=== PATIENT | female | born 1995 | race Two or more races ===

== ENCOUNTER → 2016-11-19 09:04 | Outpatient (CLI) | payer MEDICAID ==
[~2016-11-19 09:04] MED LIST: GLYBURIDE2.5 MG PO; PRENATAL COMPLE1 TAB PO
--- NOTE | 2016-11-19 10:22 | NUR ---
Nutrition education for THAI: Pt reports eating three meals every day about the same time every day. Pt is a vegetarian. Pt does not drink soda, juice or any sugary drinks. Pt drinks about 2 cups of coffee a day. Pt drinks soy or almond milk. Pt is trying to walk every day. Pt eats some junk food but tries to be careful with sir much. Reviewed CHO containing foods and the affect CHO have on glucose. Reviewed portion sizes of common CHO foods. Stressed the importance of consistent meals times along with portion control to keep glucose under control. Pt appears to be eating too many CHO at meals which is causing glucose to spike. Advised pt to eat a high protein source with all CHO eaten, ie, nuts with cereal; peanut butter with fruit; soy milk with a meal. Pt with good understanding of diet information provided. Reviewed glucose numbers before meals and after meals. Instructed pt on the use of a glucometer and lancet device. FSBS: 116 mg/dl post-prandial. Pt with good understanding of how to use a glucometer. Provided pt with printed diet information and RDN name and phone number. RDN will be available if needed. Thank you for the consult.
[2017-01-27 12:16] VITALS: BMI 37.9
== END | disposition home or self-care (01) ==
LOC: D.FANS 09:00
DX: O24.419 Gestational diabetes mellitus in pregnancy, unspecified control (principal)

== ENCOUNTER → 2016-12-20 10:30 | Outpatient (CLI) | payer MEDICAID ==
[2017-01-27 12:16] VITALS: BMI 37.9
== END | disposition home or self-care (01) ==
LOC: D.LDO 10:30
DX: O24.419 Gestational diabetes mellitus in pregnancy, unspecified control (principal); Z3A.34 34 weeks gestation of pregnancy

== ENCOUNTER → 2016-12-24 10:45 | Outpatient (CLI) | payer MEDICAID ==
[2017-01-27 12:16] VITALS: BMI 37.9
== END | disposition home or self-care (01) ==
LOC: D.LDO 10:45
DX: O24.419 Gestational diabetes mellitus in pregnancy, unspecified control (principal); Z3A.34 34 weeks gestation of pregnancy

== ENCOUNTER → 2016-12-31 18:16 | Outpatient (CLI) | payer SELFPAY | END | disposition home or self-care (01) | LOC: D.LDO 18:16 | DX: O24.419 Gestational diabetes mellitus in pregnancy, unspecified control (principal); Z3A.35 35 weeks gestation of pregnancy ==

== ENCOUNTER → 2017-01-07 17:29 | Outpatient (CLI) | payer SELFPAY | END | disposition home or self-care (01) | LOC: D.LDO 17:29 | DX: O24.419 Gestational diabetes mellitus in pregnancy, unspecified control (principal); Z3A.36 36 weeks gestation of pregnancy ==

== ENCOUNTER → 2017-01-10 14:06 | Outpatient (CLI) | payer SELFPAY | END | disposition home or self-care (01) | LOC: D.LDO 14:06 | DX: O24.419 Gestational diabetes mellitus in pregnancy, unspecified control (principal) ==

== ENCOUNTER → 2017-01-15 11:17 | Outpatient (CLI) | payer SELFPAY | END | disposition home or self-care (01) | LOC: D.LDO 11:17 | DX: Z34.83 Encounter for supervision of other normal pregnancy, third trimester (principal); Z3A.38 38 weeks gestation of pregnancy ==

== ENCOUNTER 2017-01-27 10:04 | Inpatient (IN) | payer SELFPAY ==
[~2017-01-27] VITALS: Ht 157.5 cm; Wt 94.1 kg
[2017-01-27] MEDS ORDERED: GLYBURIDE2.5 MG PO (12:04)
[2017-01-27] MEDS ORDERED: PRENATAL COMPLE1 TAB PO (12:05)
[2017-01-27 12:16] VITALS: BP 129/81; Ht 157.5 cm; Wt 94.1 kg
[2017-01-27 12:49] LABS: HEMATOCRIT 33.6 % (36.0-48.0); HEMOGLOBIN 10.7 g/dL (12-16); MCH 26.4 pg (26.0-34.0); MCHC 31.8 g/dL (31.0-37.0); MEAN PLATELET VOLUME 10.3 fL (7.4-10.4); RBC 4.05 10x6/uL (4.00-5.40); WBC 8.7 10x3/uL (4.8-10.8)
[2017-01-27 13:03] LABS: APPEARANCE HAZY (CLEAR); BACTERIA MODERATE /hpf (NONE SEEN); BILIRUBIN NEGATIVE (NEGATIVE); COLOR YELLOW (YELLOW); EPITHELIAL CELLS 0-5 /hpf (0-5); GLUCOSE NEGATIVE (NEGATIVE); KETONE NEGATIVE (NEGATIVE); LEUKOCYTE ESTERASE 2+ (NEGATIVE); NITRITE NEGATIVE (NEGATIVE); PROTEIN NEGATIVE (NEGATIVE); SPECIFIC GRAVITY 1.005 (1.005-1.020); UROBILINOGEN NORMAL (NORMAL)
--- NOTE | 2017-01-27 21:42 | NUR ---
THIS G2 NOW P2 VIA NVD AT 1950 TRANSFERRED VIA W/C TO ROOM 1273 FOR CONTINUED PP CARE BY THIS RN. ORIENTED TO NEW ROOM AND CL USE, VERBALIZED UNDERSTANDING. NEW ICE PACK APPLIED TO PERINUM. PT STATES THAT S/O WENT HOME TO CARE FOR PETS AND WILL RETURN TO UNIT SHORTLY. LINENS PROVIDED FOR S/O AND COUCH TURNED INTO BED. ICE WATER AND ORANGE JUICE GIVEN PER PT REQUEST. PT DENIES PAIN AT THIS TIME, 010. INSTRUCTED TO NOTIFY RN OF NEED FOR PAIN INTERVENTION AND ORDERED MEDS DISCUSSED WITH PT AND THAT THEY WERE ORDERED PRN MEANING SHE HAD TO ASK FOR THEM, VERBALIZED UNDERSTANDING. INSTRUCTED ON USE OF PHONE TO CONTACT NBN, EXT TO NBN PLACED ON WHITE BOARD IN ROOM, VERBALIZED UNDERSTANDING. PLAN OF CARE REVIEWED WITH PT, DENIES QUESTIONS. BED IN LOW POSITION WITH UPPER SIDE RAILS RAISED X2. CL AND PHONE WITHIN PT REACH. WILL CONT TO MONITOR AND ASSIST PRN.
--- NOTE | 2017-01-27 21:45 | NUR ---
NBN RN NOTIFIED THAT PT MOVED TO ROOM 1273 FOR CONTINUED PP CARE.
[2017-01-27 21:56] VITALS: BP 151/86
[2017-01-27 22:16] VITALS: BP 142/92
--- NOTE | 2017-01-27 22:34 | NUR ---
ROUNDS MADE. PT RESTING WITH EYES CLOSED, OPENED EYES WHEN RN OPENED DOOR. LAST B/P READING 142/92. PT DENIES HEADACHE, BLURRED VISION, DIZZINESS, LIGHTHEADED, OR NAUSEA. DENIES PAIN, STATES THAT SHE IS TIRED AND WANTS TO CONT TO REST. DENIES NEEDS, WILL CONT TO MONITOR AND ASSIST PRN. BED IN LOW POSITION WITH UPPER SIDE RAILS RAISED X2. CL AND PHONE WITHIN REACH. ICE WATER GIVEN.
[2017-01-27 22:36] VITALS: BP 139/88
[2017-01-27 22:56] VITALS: BP 142/86
[2017-01-27 23:14] VITALS: BP 142/88
--- NOTE | 2017-01-27 23:14 | NUR ---
INFANT TO ROOM BY NBN RN FOR AND BONDING. B/P CURRENTLY 142/88. B/P CUFF REMOVED PER PT REQUEST FOR BONDING WITH AND . NBN RN AT BEDSIDE ASSISTING PT WITH AT THIS TIME. WILL CONT TO MONITOR AND ASSIST PRN.
--- NOTE | 2017-01-28 00:02 | NUR ---
ROUNDS MADE. PT CONTINUES TO CARTER WITH INFANT SKIN TO SKIN AT THIS TIME. DENIES NEEDS. WILL CONT TO MONITOR AND ASSIST PRN.
--- NOTE | 2017-01-28 00:07 | NUR ---
S/O RETURNS TO UNIT. DIRECTED TO ROOM.
[2017-01-28 01:10] VITALS: BP 144/89
--- NOTE | 2017-01-28 01:23 | NUR ---
ROUNDS MADE. PT RESTING WITH EYES CLOSED, INFANT IN NBN AT THIS. RESPIRATIONS REGULAR, NO S/S OF DISTRESS NOTED. BED IN LOW POSITION WITH UPPER SIDE RAILS RAISED X2. CL AND PHONE WITHIN REACH. S/O SLEEPING ON COUCH AT BEDSIDE. WILL CONT TO MONITOR AND ASSIST PRN.
--- NOTE | 2017-01-28 03:02 | NUR ---
ROUNDS MADE. PT HOLDING INFANT AT THIS TIME. ICE WATER GIVEN PER REQUEST. DENIES PAIN. S/O SLEEPING AT BEDSIDE. BED IN LOW POSITION WITH UPPER SIDE RAILS RAISED X2. CL AND PHONE WITHIN REACH. WILL CONT TO MONITOR AND ASSIST PRN.
--- NOTE | 2017-01-28 06:06 | NUR ---
ROUNDS MADE. PT RESTING WITH EYES CLOSED. RESPIRATIONS REGULAR, NO S/S OF DISTRESS NOTED. S/O AT BEDSIDE SLEEPING. BED IN LOW POSITION WITH UPPER SIDE RAILS RAISED X2. CL AND PHONE WITHIN REACH.
[2017-01-28 06:14] LABS: RAPID PLASMA REAGIN Non Reactive (Non Reactive)
[2017-01-28 06:20] LABS: HEMATOCRIT 30.8 % (36.0-48.0); HEMOGLOBIN 9.9 g/dL (12-16); MCH 26.7 pg (26.0-34.0); MCHC 32.1 g/dL (31.0-37.0); MEAN PLATELET VOLUME 10.3 fL (7.4-10.4); RBC 3.71 10x6/uL (4.00-5.40); RDW 15.1 % (11.5-14.5)
[2017-01-28 06:27] LABS: WBC 14.3 10x3/uL (4.8-10.8)
--- NOTE | 2017-01-28 07:09 | OP ---
PATIENT NAME: THANG RUBIO MEDICAL RECORD: [id number] :95 LOCATION:[id number] ADMISSION DATE:01/27/17 SURGEON: TANVI CRISOSTOMO MD DATE OF OPERATION: 01/27/2017 Delivery Note Spontaneous vaginal delivery of male infant weighing 7 pounds 8 ounces, 9 and 10 Apgars, epidural anesthesia. No episiotomy, no laceration. Spontaneous delivery of intact-appearing placenta, pH drawn and pending. ESTIMATED BLOOD LOSS: 400 cc. COMPLICATIONS: None. TRANSINT:[id number] Voice Confirmation ID: [id number] DOCUMENT ID: [id number] TANVI CRISOSTOMO MD at 0709 CC: [id number] DICTATION DATE: 01/27/172001 PROCESS CAMERA OPERATOR: 01/28/17 0116 ADM IN [facility] [address] [place] [address]
--- NOTE | 2017-01-28 08:19 | NUR ---
PATIENT TRANSFERRED TO ROOM 1257. SHE IS ABLE TO AMBULATE INDEPENDENTLY. SHE IS PLEASED WITH HER ROOM. VSS. FOB AND MOVED WITH HER. SHE REQUESTS IBUPROPHEN FOR HER PAIN. STATES THAT SHE WOULD LIKE TO DO WITHOUT THE NARCOTICS IF POSSIBLE. HER PAIN IS MAINLY CRAMPING, FELT WHILE . SHE STATES THAT HER BLEEDING IS LIKE THAT OF A PERIOD, NO CLOTS NOTED. FF AND MIDLINE. ORIENTED TO ROOM, CALL LIGHT IS WITHIN HER REACH, ENCOURAGED TO CALL WITH ANY NEEDS.
[2017-01-28 08:26] VITALS: BP 142/84
--- NOTE | 2017-01-28 09:20 | NUR ---
PATIENT RESTING QUIETLY WITH EYES CLOSED. WOKE HER TO TAKE TO THE NURSERY. SHE DENIED NEEDS.
--- NOTE | 2017-01-28 10:30 | NUR ---
PATIENT SITTING UP IN HER BED VISITING WITH FAMILY. DENIES NEEDS. CALL LIGHT WITHIN HER REACH.
--- NOTE | 2017-01-28 12:18 | NUR ---
PATIENT UP AD SHIRA AROUNG HER ROOM. DENIES NEEDS AT THIS TIME.
[2017-01-28 12:22] VITALS: BP 148/97
--- NOTE | 2017-01-28 13:25 | NUR ---
LOPRESSOR GIVEN. WAS JUST DELIVERED FROM PHARMACY. PATIENT UNDERSTOOD WHAT IT IS AND THE POSSIBLE SIDE EFFECTS. FRESH WATER GIVEN. DENIED OTHER NEEDS.
--- NOTE | 2017-01-28 16:30 | NUR ---
baby in arms of pt. no complaints voiced.
--- NOTE | 2017-01-28 18:18 | NUR ---
numerous visitors with pt. no problems noted.
[2017-01-28 19:35] VITALS: BP 160/85
--- NOTE | 2017-01-28 19:35 | NUR ---
AWAKE DURING INITIAL ROUNDS. INTRODUCED SELF. V/S TAKEN. ASSESSMENT DONE. STATUS POST YESTERDAY. NO EPISIOTOMY OR LACERATIONS. . VOIDING WELL, LOCHIA RUBRA LIGHT. SALINE LOCK TO R FA REMOVED PER PT's REQUEST. CATH TIP INTACT.
[2017-01-28 21:10] VITALS: BP 142/84
--- NOTE | 2017-01-28 21:10 | NUR ---
LOPRESSOR / MILK OF MAG GIVEN AT HS. SEE E-MAR.
[2017-01-29] VITALS: BP 139/86
--- NOTE | 2017-01-29 | NUR ---
V/S RECHECKED. BP 139/86.
--- NOTE | 2017-01-29 01:30 | NUR ---
HER BABY. BONDING WELL.
[2017-01-29 04:35] VITALS: BP 139/93
--- NOTE | 2017-01-29 04:35 | NUR ---
V/S RECHECKED--STABLE. AT THIS TIME. GOOD -MATERNAL BONDING.
--- NOTE | 2017-01-29 05:58 | NUR ---
SLEPT FAIRLY WELL DURING THE NIGHT. CONTINUING PLAN OF CARE.
--- NOTE | 2017-01-29 06:01 | NUR ---
AWAKE DURING THE NIGHT FOR 's FEEDINGS. WILL CONTINUE PLAN OF CARE. ANTICIPATING DISCHARGE TODAY.
--- NOTE | 2017-01-29 08:11 | NUR ---
received in bed. baby in room at bedside. pt with abd soft. fundus at midline. lochia light. resp without distress. +bowel sounds. ambulates in room without problems
[2017-01-29 08:19] VITALS: BP 129/81
--- NOTE | 2017-01-29 10:10 | NUR ---
pt in bed holding baby. no distress noted
--- NOTE | 2017-01-29 12:20 | NUR ---
DISCHARGE TEACHING DONE. MOTHER SIGNS DISCHARGE PAPERS VERBALIZING UNDERSTANDING OF PELVIC REST, PERICARE AND FOLLOW UP APPT. STATES SHE WILL TAKE IBUPROFEN FOR PAIN. REMAINS STABLE WITH NO SIGNS OF DISTRESS NOTED OR VOICED. BONDING WELL WITH INFANT
--- NOTE | 2017-01-29 13:00 | NUR ---
to home via w/c. family with pt
== END 2017-01-29 13:00 | DRG 775 ==
LOC: D.LD 10:04
PROVIDERS: ADMIT Obstetrics & Gynecology
PROC: 10E0XZZ Delivery of Products of Conception, External Approach (ICD-10-PCS; principal; 2017-01-27)
DX: O24.429 Gestational diabetes mellitus in childbirth, unspecified control (principal); Z3A.39 39 weeks gestation of pregnancy; Z37.0 Single live birth